=== PATIENT | female | born 1980 | race Caucasian/White ===

== ENCOUNTER 2024-08-30 10:20 | Day surgery (SDC) | payer OTHER ==
[~2024-08-30] VITALS: Ht 165.1 cm; Wt 144.0 kg
--- NOTE | ~2024-08-30 | OR ---
[facility] [address], [place] [address] Draft DATE OF OPERATION: 08/30/2024 SURGEON: Nelia Josue MD PREOPERATIVE DIAGNOSES: 1. Colon screening. 2. Morbid obesity (318 pounds). POSTOPERATIVE DIAGNOSIS: Normal colon to cecum with external hemorrhoids. PROCEDURE: Total colonoscopy to cecum. ANESTHESIA: Intravenous sedation fentanyl 100 mcg, Versed 7 mg. INDICATION: This 44-year-old white woman is a patient of Dr. Syeda Walker. The patient is now taking a GLP-1 agonist (Ozempic) for weight loss efforts. She is now at 318 pounds. She is referred for colon screening based on her age. She understands risk of bleeding, infection, and perforation related to colonoscopy and wished to proceed. Notably, she has no family history of colon cancer. No current symptoms of bleeding, diarrhea or constipation. FINDINGS: The prep was excellent. Complete colonoscopy was undertaken of the cecum. Full intubation of the cecum was accomplished as well. She did have some external hemorrhoidal disease without acute changes. There was no sign of internal hemorrhoidal problem. PROCEDURE IN DETAIL: The patient was brought to the endoscopy suite and placed in lateral decubitus position, given intravenous sedation to the point of slurred speech and nystagmus. Digital rectal examination was normal. An Olympus video colonoscope was passed in the rectum and manipulated throughout the colon ultimately intubating the cecum itself. The ileocecal valve and appendiceal orifice were normal. The scope was withdrawn from that point and examination throughout showed no sign of abnormality specifically no polyps, diverticular formation, colitis, PATIENT NAME: LEELEE ROSA OPERATIVE REPORT DATE OF : 76 REPORT #: [id number] PHYSICIAN: NELAI JOSUE MD PCP: SYEDA WALKER MD REPORT IS CONFIDENTIAL AND NOT TO BE RELEASED WITHOUT AUTHORIZATION [facility] [address] [place] [id number] Draft or cancer. Retroflexed view of the rectum was normal. She did have some external hemorrhoids noted on physical exam. She was taken to the recovery room in good condition. CONCLUDING DIAGNOSIS: Normal colon to cecum except for external hemorrhoids. PLAN: Recommend repeat colonoscopy in 10 years, sooner if clinically indicated. Should maintain a high-fiber diet as well. She will return to the ongoing care of Dr. Syeda Walker. MD GRICELDA Zamora/MIS /[id number] cc: Dr. Syeda Walker Copies: ~ PATIENT NAME: LEELEE ROSA OPERATIVE REPORT DATE OF : 76 REPORT #: [id number] PHYSICIAN: NELIA JOSUE MD PCP: SYEDA WALKER MD REPORT IS CONFIDENTIAL AND NOT TO BE RELEASED WITHOUT AUTHORIZATION
[~2024-08-30 10:20] MED LIST: ADRENOID CAPSU1 EACH PO; IBLOOD GLUCOSE TEST STRIP 1 EA TEST VI PRN; LACTATED RINGER'S 1,000 ML IV SCH; LEVOTHYROXINE75 MC1 PO; LIDOCAINE HCL 1% 5 ML SDV INJ ONE; METFORMIN HCL500 M1 PO; MIDAZOLAM HCL 5 MG/5 ML VIAL IV PRN; OSTERA TABLET1 EACH PO; OZEMPIC2 MG/0.75 SQ; POTASSIUM99 M3 PO; REBIF 44 M44 MCG/0.5 SUB-Q; SETLAKIN 0.151 EACH PO; ZESTRIL5 MG PO; ZINC30 MG PO; fentaNYL citrate 100 MCG/2 ML VIAL IV PRN
[2024-08-30 10:39] VITALS: BP 144/95
[2024-08-30] MEDS ORDERED: MAGNESIUM250 M1 PO (10:44)
[2024-08-30] MEDS ORDERED: MIDAZOLAM HCL 5 MG/5 ML VIAL ONE ×2 (11:55→12:12)
[2024-08-30] MEDS ORDERED: fentaNYL citrate 100 MCG/2 ML VIAL ONE (11:55)
--- NOTE | 2024-08-30 12:37 | NUR ---
08/30/24 Evie7 Nicole Barrera 1233-PATIENT ARRIVED TO PACU ON RA RR EVEN. PATIENT AWAKE DENIES PAIN OR NAUSEA. LAYING LEFT LATERAL ABDOMEN ROUND AND SOFT ENCOURAGED TO PASS GAS. IV IS POSITIONAL INFUSING.
[2024-08-30 13:00] VITALS: BP 129/92
== END 2024-08-30 13:10 | disposition home or self-care (01) ==
LOC: OPS 10:20 → DS 10:20 → OPS 11:30 → DS 12:15 → OPS 12:15 → DS 13:45
PROVIDERS: ATTEND Surgery
PROC: 0DJD8ZZ Inspection of Lower Intestinal Tract, Via Natural or Artificial Opening Endoscopic (ICD-10-PCS; principal; 2024-08-30 11:30)
DX: Z12.11 Encounter for screening for malignant neoplasm of colon (principal); K64.4 Residual hemorrhoidal skin tags; I10 Essential (primary) hypertension; E03.9 Hypothyroidism, unspecified; E66.01 Morbid (severe) obesity due to excess calories; Z68.43 Body mass index [BMI] 50.0-59.9, adult; Z79.890 Hormone replacement therapy; Z79.899 Other long term (current) drug therapy; Z80.0 Family history of malignant neoplasm of digestive organs
CPT/HCPCS: 36415; 84703; 99153; G0500; J2250; J3010; J7121